=== PATIENT | female | born 1975 | race Caucasian/White ===

== ENCOUNTER 2018-10-30 13:18 | Emergency (ER) | payer OTHER ==
[2018-10-30] MEDS: ACETAMINOPHEN 325 MG TAB PO (18:49)
[2018-10-30] MEDS: IBUPROFEN 200 MG TAB PO (18:49)
== END 2018-10-30 20:07 | disposition home or self-care (01) ==
LOC: FTE 20:07
DX: A49.9 Bacterial infection, unspecified (principal)
CPT/HCPCS: 99283; Z7502